=== PATIENT | male | born 1995 | race Two or more races ===

== ENCOUNTER 2024-09-07 11:51 | Emergency (ER) | payer OTHER ==
[~2024-09-07] VITALS: Ht 172.7 cm; Wt 79.0 kg
[2024-09-07 11:53] VITALS: O2SAT 100
[2024-09-07 11:57] VITALS: BP 112/65; PULSE 68; RESP 14; TEMP 36.7; O2SAT 98
[2024-09-07 12:46] LABS: BASOPHILS % 0.7 % (0.0-2.0); CHLORIDE 102 mEq/L (98-107); EOSINOPHILS % 4.6 % (0.0-5.0); HEMATOCRIT. 47.5 % (42.0-52.0); HEMOGLOBIN. 15.9 g/dL (14.0-18.0); LYMPHOCYTES % 32.6 % (20.0-50.0); MEAN CORPUSCULAR HEMOGLOBIN 29.5 pg (28.0-32.0); MEAN CORPUSCULAR HGB CONC 33.5 g/dL (31.0-37.0); MEAN CORPUSCULAR VOLUME 88.1 fL (80.0-94.0); MEAN PLATELET VOLUME 10.1 fl (7.4-10.4); MONOCYTES % 6.9 % (2.0-8.0); NEUTROPHILS % 55.2 % (40.0-76.0); PLATELET 176 x1000/uL (130-400); POTASSIUM 4.8 mEq/L (3.5-5.1); RED BLOOD CELL COUNT 5.38 mill/uL (4.7-6.1); RED CELL DISTRIBUTION WIDTH 13.3 % (11.6-14.6); SODIUM 140 mEq/L (136-145); WHITE BLOOD COUNT 4.7 x1000/uL (4.5-11.0)
[2024-09-07 12:48] LABS: CARBON DIOXIDE 32 mEq/L (21-32)
[2024-09-07 12:49] LABS: CALCIUM 9.8 mg/dL (8.7-10.4)
[2024-09-07 12:54] LABS: GLUCOSE 114 mg/dL (70-105); UREA NITROGEN BLOOD 15 mg/dL (9-23)
[2024-09-07 12:55] LABS: ALANINE AMINOTRANSFERASE 29 IU/L (10-49); ASPARTATE AMINOTRANSFERASE 23 IU/L (<34)
[2024-09-07 12:56] LABS: ALBUMIN 4.5 g/dL (3.2-4.8); BILIRUBIN DIRECT 0.2 mg/dL (<=3.0); BILIRUBIN TOTAL 0.8 mg/dL (0.1-1.0); PROTEIN TOTAL 7.1 g/dL (6.0-8.3)
[2024-09-07] MEDS: ONDANSETRON HCL 4MG/2ML INJ IV ONE (13:00)
[2024-09-07] MEDS: MORPHINE SULFATE 4 MG/ML INJ (FOR IV/IM USE) IV ONE (13:00)
[2024-09-07] MEDS ORDERED: IBUP-2029 MT (15:21)
== END 2024-09-07 15:55 | disposition home or self-care (01) ==
LOC: ER 11:51
DX: R10.9 Unspecified abdominal pain (principal); I10 Essential (primary) hypertension
CPT/HCPCS: 36415; 74176; 80048; 80076; 85025; 99284